=== PATIENT | female | born 1960 | race Two or more races ===

== ENCOUNTER 2023-05-29 11:23 | Day surgery (SDC) | payer OTHER ==
[~2023-05-29] VITALS: Ht 149.9 cm; Wt 59.0 kg
[2023-05-29] MEDS ORDERED: diphenhydrAMINE 50 MG/ML VIAL ONE (13:04)
[2023-05-29] MEDS ORDERED: MIDAZOLAM 5 MG/5 ML VIAL ONE (13:04)
[2023-05-29] MEDS ORDERED: fentaNYL citrate 0.05 MG/ML VIAL ONE (13:04)
[2023-05-29] MEDS ORDERED: LIDOCAINE 2% 100 MG/5 ML UJET TP ONE (13:05)
== END 2023-05-29 14:50 | disposition home or self-care (01) ==
LOC: MDS 11:23 → MMU 11:35 → MDS 14:50
PROVIDERS: ATTEND Internal Medicine Gastroenterology
DX: Z12.11 Encounter for screening for malignant neoplasm of colon (principal); C18.6 Malignant neoplasm of descending colon; K57.30 Diverticulosis of large intestine without perforation or abscess without bleeding; R05.3 Chronic cough; K64.9 Unspecified hemorrhoids; I10 Essential (primary) hypertension; E78.5 Hyperlipidemia, unspecified; K21.9 Gastro-esophageal reflux disease without esophagitis; Z79.899 Other long term (current) drug therapy
CPT/HCPCS: 43235; 45380; 45381; 88305; J2250; J3010; J1200